=== PATIENT | male | born 1935 | race Caucasian/White ===

== ENCOUNTER 2016-06-04 11:42 | Outpatient (CLI) | payer MEDICARE ==
[2016-06-04 13:43] LABS: Hemoglobin A1c 5.6 % (4.0-6.0)
== END 2016-06-04 11:43 ==
LOC: NAVSJIPCSP 11:42
PROVIDERS: ATTEND Family Medicine
DX: I25.10 Atherosclerotic heart disease of native coronary artery without angina pectoris (principal); R30.0 Dysuria; N40.0 Benign prostatic hyperplasia without lower urinary tract symptoms; I10 Essential (primary) hypertension; E78.00 Pure hypercholesterolemia, unspecified; E03.9 Hypothyroidism, unspecified; Z79.899 Other long term (current) drug therapy
CPT/HCPCS: 36415; 80061; 83036; 84443

== ENCOUNTER 2020-04-12 13:08 | Outpatient (CLI) | payer MEDICAID, MEDICARE ==
--- NOTE | 2020-04-12 13:32 | RAD ---
XR Ribs Bilat 4 View W/PA CXR History: Fall Comparison: Chest radiograph February 03, 2020 Findings: Lungs are clear. No pneumothorax or effusion. Cardiac silhouette and mediastinal contours a re similar. No acute displaced rib fracture. Extensive motion artifact throughout the exam. Impression: No acute displaced rib fracture appreciated.
== END 2020-04-12 13:09 | disposition home or self-care (01) ==
LOC: NAV RAD 13:08
PROVIDERS: ATTEND Internal Medicine
DX: Z91.81 History of falling (principal)
CPT/HCPCS: 71111